=== PATIENT | female | born 1985 | race Caucasian/White ===

== ENCOUNTER 2017-12-07 22:34 | Emergency (ER) | payer SELFPAY ==
[2017-12-07] MEDS ORDERED: KETOROLAC 30 MG/ML INJ ONE (22:58)
[2017-12-07 23:06] LABS: Absolute Lymphocytes (CBC) 1.7 K/uL (0.7-4.9); Absolute Monocytes 0.7 K/uL (0.1-1.3); Absolute Neutrophil 12.1 K/uL (1.8-8.0); Basophils % 0.4 % (0-1.3); Eosinophils % 1.1 % (0-4.4); Hematocrit 40.2 % (36.0-45.0); Lymphocytes % 11.4 % (15.3-44.8); MCH 31.2 pg (27.0-35.0); MCV 88.3 fL (80-100); MPV 9.2 fL (7.6-11.3); Monocytes % 4.6 % (3.3-12.3); RBC Red Blood Cell Count 4.55 M/uL (3.86-4.86)
[2017-12-07 23:23] LABS: ALT/SGPT 28 U/L (12-78); AST/SGOT 25 U/L (15-37); Albumin 4.1 g/dL (3.4-5.0); Alkaline Phosphatase 60 U/L (45-117); BUN Blood Urea Nitrogen 16 mg/dL (7-18); Bicarbonate 27 mmol/L (21-32); Bilirubin Direct < 0.1 mg/dL (0-0.2); Bilirubin Total 0.5 mg/dL (0.2-1.0); Glucose Level 99 mg/dL (74-106); Lipase 170 U/L (73-393); Potassium 3.8 mmol/L (3.5-5.1); Protein, Total 7.9 g/dL (6.4-8.2); Sodium Level 138 mmol/L (136-145)
[2017-12-08 01:09] LABS: Urine Blood TRACE (NEG); Urine Glucose NEGATIVE (NEG); Urine Protein NEGATIVE (NEG); Urine Specific Gravity >1.030 (1.005-1.030)
[2017-12-08 01:33] LABS: Urine Bacteria 20-50 /HPF (<20); Urine Culture Reflex Order NOT NEEDED; Urine Mucus HEAVY /HPF (NONE SEEN); Urine RBC <5 /HPF (NONE SEEN)
--- NOTE | 2017-12-08 02:11 | ER ---
Nurse's Notes [facility] Name: Catarina Maldonado Age: 32 yrs Sex: Female : 1985 Arrival Date: 12/07/2017 Time: 22:35 Bed 23 Private MD: Diagnosis: Nausea and vomiting;Lower abdominal pain, unspecified Presentation: 12/07 22:43 Presenting complaint: Patient states: "PAIN STARTED EARLIER (1800H). I VOMITED THREE rv TIMES ALREADY.". Transition of care: patient was not received from another setting of care. Onset of symptoms was December 07, 2017 at 18:00. Risk Assessment: Do you want to hurt yourself or someone else? Patient reports no desire to harm self or others. Initial Sepsis Screen: Does the patient meet any 2 criteria? No. Patient's initial sepsis screen is negative. Does the patient have a suspected source of infection? No. Patient's initial sepsis screen is negative. Care prior to arrival: None. 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 - Social history:: Smoking status: Patient uses tobacco products, denies chronic smoking, but will smoke occasionally. - Ebola Screening: : Patient negative for fever greater than or equal to 101.5 degrees Fahrenheit, and additional compatible Ebola Virus Disease symptoms Patient denies exposure to infectious person Patient denies travel to an Ebola-affected area in the 21 days before illness onset. Screenin:48 Abuse screen: Denies threats or abuse. Denies injuries from another. Nutritional rv screening: No deficits noted. Tuberculosis screening: No symptoms or risk factors identified. Fall Risk None identified. Assessment: 22:47 General: Appears in no apparent distress. comfortable, Behavior is calm, cooperative. rv Pain: Complains of pain in ABDOMINAL, RLQ. Neuro: Level of Consciousness is awake, alert, obeys commands, Oriented to person, place, time, situation. Cardiovascular: Capillary refill < 3 seconds. Respiratory: Airway is patent. GI: Bowel sounds present X 4 quads. Abd is soft and non tender X 4 quads. Abd is non tender. : No signs and/or symptoms were reported regarding the genitourinary system. EENT: No signs and/or symptoms were reported regarding the EENT system. Derm: Skin is intact. 22:59 Reassessment: PATIENT DONE WITH ORAL CONTRAST. rv 23:54 Reassessment: Patient appears in no apparent distress at this time. Patient and/or rv family updated on plan of care and expected duration. Pain level reassessed. Patient is alert, oriented x 3, equal unlabored respirations, skin warm/dry/pink. 12/08 00:55 Reassessment: Patient appears in no apparent distress at this time. Patient and/or rv family updated on plan of care and expected duration. Pain level reassessed. Patient is alert, oriented x 3, equal unlabored respirations, skin warm/dry/pink. Vital Signs: 12/07 22:46 BP 137 / 95; Pulse 89; Pulse Ox 97% on R/A; Weight 90.72 kg; rv 23:53 BP 131 / 90; Pulse 82; Pulse Ox 97% on R/A; rv 12/08 00:54 BP 128 / 84; Pulse 74; Pulse Ox 96% on R/A; rv 01:33 BP 128 / 90; Pulse 94; Pulse Ox 100% on R/A; rv 02:08 BP 119 / 94; Pulse 98; Temp 98.4(O); Pulse Ox 98% ; rv ED Course: 12/07 22:35 Patient arrived in ED. ag3 22:41 Cordell Carroll PA is PHCP. cp 22:41 Ari Cagle MD is Attending Physician. cp 22:44 Triage completed. rv 22:48 Arm band placed on right wrist. rv 22:48 Patient has correct armband on for positive identification. Bed in low position. Call rv light in reach. Side rails up X 1. Pulse ox on. NIBP on. 23:00 Initial lab(s) drawn, by ED staff, sent to lab. Inserted saline lock: 20 gauge in left rv antecubital area, using aseptic technique. Blood collected. 23:37 US Pelvis Complete In Process Unspecified. EDMS 12/08 00:48 Urine Microscopic Only Sent. jb5 00:[address] via wheelchair. kw1 01:03 CT Abd/Pelvis - W/Contrast In Process Unspecified. EDMS 01:04 CT completed. Patient tolerated procedure well. Patient moved back from CT. kw1 02:28 No provider procedures requiring assistance completed. IV discontinued, bleeding rv controlled, No redness/swelling at site. Pressure dressing applied. Administered Medications: 12/07 23:19 Drug: TORadol 30 mg Route: IVP; Site: left antecubital; rv 12/08 02:27 Follow up: Response: No adverse reaction rv Outcome: 02:10 Discharge ordered by MD. cp 02:28 Discharged to home ambulatory. rv 02:28 Condition: good 02:28 Discharge instructions given to patient, Instructed on discharge instructions, follow up and referral plans. medication usage, Demonstrated understanding of instructions, follow-up care, medications, Prescriptions given X 2. 02:28 Patient left the ED. rv Signatures: Dispatcher [employer] EDMS Cordell Carroll PA PA cp Autumn Faye jb5 Grace Jaramillo kw1 Fantasma Lezama RN RN rv Celia Case ag3
--- NOTE | 2017-12-08 02:11 | EDPHYS ---
Physician Documentation [facility] Name: Catarina Maldonado Age: 32 yrs Sex: Female : 1985 Arrival Date: 12/07/2017 Time: 22:35 Bed 23 Private MD: ED Physician Ari Cagle HPI: 12/07 22:45 This 32 yrs old Female presents to ER via Ambulatory with complaints of cp Abdominal Pain. 22:45 The patient presents with abdominal pain right lower quadrant. Onset: The cp symptoms/episode began/occurred today, 4 hour(s) ago. The symptoms do not radiate. 22:45 Associated signs and symptoms: Pertinent positives: nausea, vomiting, Pertinent cp negatives: anorexia, blood in stools, chest pain, constipation, diarrhea, fever. 22:45 Severity of pain: in the emergency department the pain is unchanged despite home cp interventions. 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 - Social history:: Smoking status: Patient uses tobacco products, denies chronic smoking, but will smoke occasionally. - Ebola Screening: : Patient negative for fever greater than or equal to 101.5 degrees Fahrenheit, and additional compatible Ebola Virus Disease symptoms Patient denies exposure to infectious person Patient denies travel to an Ebola-affected area in the 21 days before illness onset. ROS: 23:00 Constitutional: Negative for body aches, chills, fever, poor PO intake. cp 23:00 Eyes: Negative for injury, pain, redness, and discharge. cp 23:00 ENT: Negative for drainage from ear(s), ear pain, sore throat, difficulty swallowing, difficulty handling secretions. 23:00 Cardiovascular: Negative for chest pain, edema, palpitations. 23:00 Respiratory: Negative for cough, shortness of breath, wheezing. 23:00 Abdomen/GI: Positive for abdominal pain, of the right lower quadrant, Negative for vomiting, diarrhea, constipation, anorexia. 23:00 : Negative for urinary symptoms, vaginal bleeding, vaginal discharge. 23:00 Skin: Negative for cellulitis, rash. 23:00 Neuro: Negative for altered mental status, headache, weakness. 23:00 All other systems are negative. Exam: 23:07 Head/Face: Normocephalic, atraumatic. cp 23:07 Constitutional: The patient appears in no acute distress, alert, awake, non-toxic, well developed, well nourished, uncomfortable. 23:07 Eyes: Periorbital structures: appear normal, Conjunctiva: normal, no exudate, no cp injection, Sclera: no appreciated abnormality, Lids and lashes: appear normal, bilaterally. 23:07 ENT: External ear(s): are unremarkable, Nose: is normal, Mouth: Lips: moist, Oral mucosa: pink and intact, moist, Posterior pharynx: is normal, airway is patent, no erythema, no exudate. 23:07 Neck: ROM/movement: is normal, is supple, without pain, no range of motions limitations, no nuchal rigidity. 23:07 Chest/axilla: Inspection: normal, Palpation: is normal, no crepitus, no tenderness. 23:07 Cardiovascular: Rate: normal, Rhythm: regular. 23:07 Respiratory: the patient does not display signs of respiratory distress, Respirations: normal, no use of accessory muscles, no retractions, no splinting, no tachypnea, labored breathing, is not present, Breath sounds: are clear throughout, no decreased breath sounds, no stridor, no wheezing. 23:07 Abdomen/GI: Inspection: abdomen appears normal, Bowel sounds: active, all quadrants, Palpation: soft, in all quadrants, moderate abdominal tenderness, in the right lower quadrant, rebound tenderness, is not appreciated, involuntary guarding, is not appreciated. 23:07 Back: pain, is absent, ROM is normal. 23:07 Skin: cellulitis, is not appreciated, no rash present. 23:07 Neuro: Orientation: to person, place \T\ time. Mentation: is normal, Cerebellar function: is grossly normal, Motor: moves all fours, strength is normal, Sensation: no obvious gross deficits. Vital Signs: 22:46 BP 137 / 95; Pulse 89; Pulse Ox 97% on R/A; Weight 90.72 kg; rv 23:53 BP 131 / 90; Pulse 82; Pulse Ox 97% on R/A; rv 12/08 00:54 BP 128 / 84; Pulse 74; Pulse Ox 96% on R/A; rv 01:33 BP 128 / 90; Pulse 94; Pulse Ox 100% on R/A; rv 02:08 BP 119 / 94; Pulse 98; Temp 98.4(O); Pulse Ox 98% ; rv MDM: 12/07 22:41 Patient medically screened. cp 23:00 Differential diagnosis: appendicitis, bowel obstruction, gastritis, non-specific abd cp pain, Ovarian Torsion, Peritonitis, Ureterolithiasis, urinary tract infection. 12/08 02:10 Data reviewed: vital signs, nurses notes, lab test result(s), radiologic studies, CT cp scan, ultrasound. 02:10 Counseling: I had a detailed discussion with the patient and/or guardian regarding: the cp historical points, exam findings, and any diagnostic results supporting the discharge/admit diagnosis, lab results, radiology results, to return to the emergency department if symptoms worsen or persist or if there are any questions or concerns that arise at home. Response to treatment: the patient's symptoms have markedly improved after treatment. Special discussion: Based on the patient's Hx, exam, and Dx evaluation, there is no indication for emergent surgery or inpatient Tx. It is understood by the patient/guardian that if the Sx's persist or worsen they need to return immediately for re-evaluation. ED course: VSS. CT and US negative for acute findings. Will discharge to home for continued monitoring. 12/07 22:47 Order name: Urine Microscopic Only; Complete Time: 01:56 cp 12/08 01:57 Interpretation: Normal except: UBACT 20-50; SQEPI 20-50. cp 12/07 22:47 Order name: Basic Metabolic Panel; Complete Time: 00:37 cp 12/08 00:37 Interpretation: Normal except: GFR 72. cp 12/07 22:47 Order name: CBC with Diff; Complete Time: 00:37 cp 12/08 00:37 Interpretation: Normal except: WBC 14.6; MOHIT% 82.5; LYM% 11.4; NEUT A 12.1. cp 12/07 22:47 Order name: Hepatic Function; Complete Time: 00:37 cp 12/07 22:47 Order name: Lipase; Complete Time: 00:37 cp 12/07 22:47 Order name: US Pelvis Complete cp 12/07 22:47 Order name: Urine Dipstick-Ancillary (obtain specimen); Complete Time: 00:48 cp 12/07 22:47 Order name: IV Saline Lock; Complete Time: 23:20 cp 12/07 22:47 Order name: Labs collected and sent; Complete Time: 23:20 cp 12/07 22:47 Order name: CT Abd/Pelvis - W/Contrast cp 12/08 00:54 Order name: Urine Dipstick--Ancillary (enter results); Complete Time: 01:56 ms 12/08 02:07 Interpretation: Normal except: UKET 2+; UBLD TRACE. cp 12/08 00:54 Order name: Urine --Ancillary (enter results); Complete Time: 01:56 ms 12/08 01:57 Interpretation: Normal except: USPGR >1.030. cp Administered Medications: 12/07 23:19 Drug: TORadol 30 mg Route: IVP; Site: left antecubital; rv 12/08 02:27 Follow up: Response: No adverse reaction rv Disposition: 04:11 Co-signature as Attending Physician, Ari Cagle MD I agree with the assessment and kdr plan of care. Disposition: 12/08/17 02:10 Discharged to Home. Impression: Nausea and vomiting, Lower abdominal pain, unspecified. - Condition is Stable. - Discharge Instructions: Abdominal Pain, Adult, Nausea and Vomiting, Adult. - Prescriptions for Zofran 4 mg Oral Tablet - take 1 tablet by ORAL route every 12 hours As needed; 20 tablet. Anaprox DS 550 mg Oral Tablet - take 1 tablet by ORAL route every 12 hours As needed; 20 tablet. - Medication Reconciliation Form, Thank You Letter, Antibiotic Education, Prescription Opioid Use form. - Follow up: Private Physician; When: 2 - 3 days; Reason: Recheck today's complaints. - Problem is new. - Symptoms have improved. Signatures: Dispatcher [employer] [facility] Ari Cagle MD MD kdr Cordell Carroll PA PA cp Fantasma Lezama RN RN rv Corrections: (The following items were deleted from the chart) 12/07 23:02 22:48 Creatinine for Radiology+C.LAB.BRZ ordered. EDTN EDTN 12/08 02:28 02:10 12/08/2017 02:10 Discharged to Home. Impression: Nausea and vomiting; Lower rv abdominal pain, unspecified. Condition is Stable. Forms are Medication Reconciliation Form, Thank You Letter, Antibiotic Education, Prescription Opioid Use. Follow up: Private Physician; When: 2 - 3 days; Reason: Recheck today's complaints. Problem is new. Symptoms have improved. cp
--- NOTE | 2017-12-08 08:38 | RAD REPORT ---
EXAM DESCRIPTION: US - Pelvis Complete - 12/07/2017 11:37 pm CLINICAL HISTORY: Right lower quadrant pain, pelvic pain Preliminary findings provided the time of the study. COMPARISON: None. TECHNIQUE: Transabdominal pelvic sonography was performed. FINDINGS: Transabdominal pelvic sonography performed. The patient is status post hysterectomy. Both ovaries are identifiable and normal in size. Doppler evaluation shows normal blood flow within t he ovarian stroma. No dominant solid or cystic ovarian or adnexal finding. No free fluid seen. IMPRESSION: Unremarkable post hysterectomy pelvic ultrasound.
--- NOTE | 2017-12-08 10:14 | RAD REPORT ---
EXAM DESCRIPTION: CT - Abdomen Pelvis W Contrast - 12/08/2017 6:39 am CLINICAL HISTORY: Right lower quadrant pain, prior hysterectomy A preliminary report was provided at the time of the study and reviewed prior to final report. COMPARISON: None. TECHNIQUE: Biphasic, helical CT imaging of the abdomen and pelvis was performed following 100 ml non -ionic IV contrast. Oral contrast was given. All CT scans are performed using dose optimization technique as appropriate and may include automated exposure control or mA/KV adjustment according to patient size. FINDINGS: No suspicious findings in the lung bases. No focal abnormality in a normal size liver. Attenuation is borderline to mildly fatty infiltrated. N o splenomegaly or focal splenic finding. Accessory splenic nodule present inferior margin. No acute p ancreatic process. Gallbladder and biliary tree are also without suspicious finding. Symmetric renal function is seen with no hydronephrosis or suspicious renal mass. No pyelonephritis o r acute renal parenchymal process. No adrenal gland abnormality. Urinary bladder is contracted. No gastric dilatation or gastric wall thickening. No dilated large or small bowel. There are on opaci fied small bowel loops in the lower abdomen. Appendix is not clearly defined. No free air or pneumat osis. No bulky lymphadenopathy or omental thickening. Very minimal umbilical hernia present. Uterus is absent by history. Status of the ovaries is uncertain. Left ovary is not clearly defined. M oderate amount of fluid is present in the cul-de-sac and bilateral adnexa with attenuation value grea ter than 30. There is additional soft tissue attenuation present that could represent hemorrhagic mat erial. In the upper right pelvis a 6 x 4 mm area of soft tissue attenuation is present. This could be a confluence of on opacified small bowel, Right ovary and/or hematoma. Additional free fluid is seen along each pericolic gutter superiorly to the liver and spleen level. No suspicious bony findings. IMPRESSION: Moderate amount of fluid in the pelvis and pericolic gutters as well as heterogeneous so ft tissue attenuation in the pelvis suspected to be hemorrhagic material. Uterus is surgically absent remotely and normal clearly defined ovaries are not seen. A hemorrhagic right ovarian cyst would be an etiology that could explain all of these findings. Hemor rhage of an ovarian mass would be a consideration. Ruptured appendicitis cannot be excluded in the ab sence of a normal appendix. However, this etiology is felt to be lower in likelihood.
== END 2017-12-08 02:28 | disposition home or self-care (01) ==
LOC: ER 22:34
DX: R10.31 Right lower quadrant pain (principal); Z72.0 Tobacco use
CPT/HCPCS: 36415; 74177; 76856; 80048; 80076; 81003; 81015; 81025; 83690; 85025; 96374; 99284; Q9967

== ENCOUNTER 2017-12-08 10:11 | Emergency (ER) | payer SELFPAY ==
[2017-12-08 14:02] LABS: Absolute Lymphocytes (CBC) 1.8 K/uL (0.7-4.9); Absolute Monocytes 0.7 K/uL (0.1-1.3); Absolute Neutrophil 9.1 K/uL (1.8-8.0); Basophils % 0.4 % (0-1.3); Eosinophils % 0.4 % (0-4.4); Hematocrit 36.1 % (36.0-45.0); Lymphocytes % 15.1 % (15.3-44.8); MCH 30.1 pg (27.0-35.0); MCV 88.6 fL (80-100); MPV 9.1 fL (7.6-11.3); RBC Red Blood Cell Count 4.07 M/uL (3.86-4.86)
--- NOTE | 2017-12-08 14:25 | RAD REPORT ---
EXAM DESCRIPTION: Teodoro Single View12/08/2017 1:22 pm CLINICAL HISTORY: Chest pain COMPARISON: none FINDINGS: The lungs appear clear of acute infiltrate. The heart is normal size IMPRESSION: No acute abnormalities displayed
[2017-12-08 15:15] LABS: Protime INR 1.04
[2017-12-08 15:29] LABS: ALT/SGPT 28 U/L (12-78); AST/SGOT 15 U/L (15-37); Albumin 4.6 g/dL (3.4-5.0); Alkaline Phosphatase 61 U/L (45-117); BUN Blood Urea Nitrogen 20 mg/dL (7-18); Bicarbonate 28 mmol/L (21-32); Bilirubin Direct 0.2 mg/dL (0-0.2); Bilirubin Total 0.8 mg/dL (0.2-1.0); Glucose Level 87 mg/dL (74-106); Magnesium 2.4 mg/dL (1.8-2.4); NT PRO-BNP 19 pg/mL (<125); Potassium 3.6 mmol/L (3.5-5.1); Protein, Total 8.3 g/dL (6.4-8.2); Sodium Level 139 mmol/L (136-145); Troponin (Emerg Dept Use Only) < 0.02 ng/mL (0.0-0.045)
--- NOTE | 2017-12-08 15:38 | ER ---
Nurse's Notes [facility] Name: Catarina Maldonado Age: 32 yrs Sex: Female : 1985 Arrival Date: 12/08/2017 Time: 10:13 Bed 23 Private MD: None, None Diagnosis: Chest pain, unspecified Presentation: 12/08 10:44 Presenting complaint: Patient states: Right sided chest pain that started last night aj after she was given a GI cocktail while patient was in this ER for upper abdominal pain. Reported pain to staff last night. Patient reports pain is worse when laying down and is reproduceable. Transition of care: patient was not received from another setting of care. Onset of symptoms was December 08, 2017. Risk Assessment: Do you want to hurt yourself or someone else? Patient reports no desire to harm self or others. Initial Sepsis Screen: Does the patient meet any 2 criteria? No. Patient's initial sepsis screen is negative. Does the patient have a suspected source of infection? No. Patient's initial sepsis screen is negative. Care prior to arrival: None. 10:44 Method Of Arrival: Ambulatory 10:44 Acuity: SANTY 4 aj Triage Assessment: 10:46 General: Appears in no apparent distress. comfortable, Behavior is calm, cooperative, aj appropriate for age. Pain: Complains of pain in anterior aspect of right upper chest. Neuro: Level of Consciousness is awake, alert, obeys commands, Oriented to person, place, time, situation, Appropriate for age. Cardiovascular: Reports chest pain, Denies diaphoresis, fatigue, lightheadedness, nausea, palpitations, shortness of breath, syncope, vomiting, Capillary refill < 3 seconds in bilateral fingers Patient's skin is warm and dry. Respiratory: Airway is patent Respiratory effort is even, unlabored, Respiratory pattern is regular, symmetrical. Derm: Skin is intact, is healthy with good turgor, Skin is pink, warm \T\ dry. normal. ICU TECH: 10:46 LMP N/A - Hysterectomy aj Historical: - Allergies: 10:46 No Known Allergies; aj - Home Meds: 10:46 None [Active]; aj - PMHx: 10:46 None; aj - PSHx: 10:46 Hysterectomy; aj - Immunization history:: Adult Immunizations up to date. - Social history:: Smoking status: Patient/guardian denies using tobacco. - Ebola Screening: : Patient negative for fever greater than or equal to 101.5 degrees Fahrenheit, and additional compatible Ebola Virus Disease symptoms Patient denies exposure to infectious person Patient denies travel to an Ebola-affected area in the 21 days before illness onset No symptoms or risks identified at this time. Screenin:51 Abuse screen: Denies threats or abuse. Nutritional screening: No deficits noted. tl3 Tuberculosis screening: No symptoms or risk factors identified. Fall Risk None identified. Assessment: 13:51 General: Appears in no apparent distress. comfortable, well groomed, well developed, tl3 well nourished, Behavior is calm, cooperative, appropriate for age. Pain: Complains of pain in anterior aspect of right upper chest Pain does not radiate. Pain began 1 day ago. Neuro: Level of Consciousness is awake, alert, obeys commands, Oriented to person, place, time, situation, Appropriate for age. Cardiovascular: Patient's skin is warm and dry. Respiratory: Airway is patent Respiratory effort is even, unlabored, Respiratory pattern is regular, symmetrical. GI: No signs and/or symptoms were reported involving the gastrointestinal system. : No signs and/or symptoms were reported regarding the genitourinary system. EENT: No signs and/or symptoms were reported regarding the EENT system. Derm: No signs and/or symptoms reported regarding the dermatologic system. 15:32 Reassessment: Patient appears in no apparent distress at this time. No changes from tl3 previously documented assessment. Patient and/or family updated on plan of care and expected duration. Pain level reassessed. Patient is alert, oriented x 3, equal unlabored respirations, skin warm/dry/pink. no needs at this time. Vital Signs: 10:46 BP 132 / 89; Pulse 88; Resp 17; Temp 99.0(O); Pulse Ox 100% on R/A; Weight 90.72 kg; aj Height 5 ft. 5 in. (165.10 cm); 13:51 BP 120 / 67; Pulse 84; Resp 18; Pulse Ox 98% on R/A; tl3 15:32 BP 113 / 75; Pulse 77; Resp 18; Pulse Ox 99% ; tl3 15:55 BP 117 / 75; Pulse 78; Resp 18; Pulse Ox 100% on R/A; Pain 0/10; mg2 10:46 Body Mass Index 33.28 (90.72 kg, 165.10 cm) aj ED Course: 10:13 Patient arrived in ED. mr 10:13 None, None is Private Physician. mr 10:23 EKG completed in triage. Results shown to MD. aj 10:27 EKG done, by ED staff, reviewed by Abhijit Ramos MD. 5 10:45 Triage completed. aj 10:46 Arm band placed on left wrist. Patient placed in waiting room, Patient notified of wait aj time. 12:20 Del Rod PA is PHCP. jr8 12:20 Abhijit Ramos MD is Attending Physician. jr8 13:20 X-ray completed. Portable x-ray completed in exam room. jr1 13:22 XRAY Chest (1 view) In Process Unspecified. EDMS 13:26 Angela Calderon, ZAHIDA is Primary Nurse. tl3 13:51 Patient has correct armband on for positive identification. Placed in gown. Bed in low tl3 position. Call light in reach. Side rails up X 1. 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 Pulse ox on. NIBP on. 13:51 No provider procedures requiring assistance completed. Missed attempt(s): 20 gauge in tl3 left forearm. antecubital area. Patient maintains SpO2 saturation greater than 95% on room air. 15:02 Lab(s) recollected, by me, sent to lab. Inserted saline lock: 20 gauge in right cb2 antecubital area, using aseptic technique. Blood collected. 15:55 IV discontinued, intact, bleeding controlled, No redness/swelling at site. Pressure mg2 dressing applied. Administered Medications: No medications were administered Outcome: 15:37 Discharge ordered by . jr8 15:56 Discharged to home ambulatory. mg2 15:56 Condition: stable 15:56 Discharge instructions given to patient, Instructed on discharge instructions, follow up and referral plans. Demonstrated understanding of instructions, follow-up care. 15:56 Patient left the ED. mg2 17:27 Condition: CALIXTO Oglesby spoke to patient about radiology results from last night, aa5 Dr. Odell reported to Del a possible ovarian cyst rupture, pt was instructed to follow-up with LOT ATTENDANT as soon as possible and instructed to return to ER if feeling SOB, increased abd pain or other worsening symptoms, pt verbalized understanding. Signatures: Dispatcher [employer] Althea Martinez, RN RN aj Juan, Ira mr Vancleve, Autumn jr1 Ivette Melendez, RN RN aa5 Del Rod PA PA jr8 Gaviota Davis Christian cb2 Lowrey, Tammy, ZAHIDA RN tl3 Nick Phoenix RN RN mg2
--- NOTE | 2017-12-08 15:38 | EDPHYS ---
Physician Documentation [facility] Name: Catarina Maldonado Age: 32 yrs Sex: Female : 1985 Arrival Date: 12/08/2017 Time: 10:13 Bed 23 Private MD: None, None ED Physician Abhijit Ramos HPI: 12/08 13:52 This 32 yrs old Female presents to ER via Ambulatory with complaints of Chest jr8 Pain. 13:52 The patient or guardian reports chest pain that is located primarily in the anterior jr8 chest wall, right. The pain radiates to the right shoulder, right back. Associated signs and symptoms: Pertinent positives: shortness of breath. The chest pain is described as dull, sharp. Duration: The patient or guardian reports multiple episodes. Modifying factors: The symptoms are alleviated by nothing. the symptoms are aggravated by laying down. Severity of pain: At its worst the pain was moderate in the emergency department the pain is unchanged. The patient has not experienced similar symptoms in the past. The patient has been recently seen by a physician: with different complaint(s). 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 - Social history:: Smoking status: Patient/guardian denies using tobacco. - Ebola Screening: : Patient negative for fever greater than or equal to 101.5 degrees Fahrenheit, and additional compatible Ebola Virus Disease symptoms Patient denies exposure to infectious person Patient denies travel to an Ebola-affected area in the 21 days before illness onset No symptoms or risks identified at this time. ROS: 13:52 Eyes: Negative for injury, pain, redness, and discharge, ENT: Negative for injury, jr8 pain, and discharge, Neck: Negative for injury, pain, and swelling, Respiratory: Negative for shortness of breath, cough, wheezing, and pleuritic chest pain, Abdomen/GI: Negative for abdominal pain, nausea, vomiting, diarrhea, and constipation, Back: Negative for injury and pain, MS/Extremity: Negative for injury and deformity, Skin: Negative for injury, rash, and discoloration, Neuro: Negative for headache, weakness, numbness, tingling, and seizure. 13:52 Cardiovascular: Positive for chest pain, Negative for edema, orthopnea, palpitations, paroxysmal nocturnal dyspnea. Exam: 13:52 Eyes: Pupils equal round and reactive to light, extra-ocular motions intact. Lids and jr8 lashes normal. Conjunctiva and sclera are non-icteric and not injected. Cornea within normal limits. Periorbital areas with no swelling, redness, or edema. ENT: Nares patent. No nasal discharge, no septal abnormalities noted. Tympanic membranes are normal and external auditory canals are clear. Oropharynx with no redness, swelling, or masses, exudates, or evidence of obstruction, uvula midline. Mucous membranes moist. Neck: Trachea midline, no thyromegaly or masses palpated, and no cervical lymphadenopathy. Supple, full range of motion without nuchal rigidity, or vertebral point tenderness. No Meningismus. Cardiovascular: Regular rate and rhythm with a normal S1 and S2. No gallops, murmurs, or rubs. Normal PMI, no JVD. No pulse deficits. Respiratory: Lungs have equal breath sounds bilaterally, clear to auscultation and percussion. No rales, rhonchi or wheezes noted. No increased work of breathing, no retractions or nasal flaring. Abdomen/GI: Soft, non-tender, with normal bowel sounds. No distension or tympany. No guarding or rebound. No evidence of tenderness throughout. Back: No spinal tenderness. No costovertebral tenderness. Full range of motion. Skin: Warm, dry with normal turgor. Normal color with no rashes, no lesions, and no evidence of cellulitis. MS/ Extremity: Pulses equal, no cyanosis. Neurovascular intact. Full, normal range of motion. Neuro: Awake and alert, GCS 15, oriented to person, place, time, and situation. Cranial nerves II-XII grossly intact. Motor strength 5/5 in all extremities. Sensory grossly intact. Cerebellar exam normal. Normal gait. 13:54 Chest/axilla: Inspection: normal, Palpation: tenderness, that is mild, of the jr8 anterior aspect of right upper chest, that partially reproduces the patient's complaints. Vital Signs: 10:46 BP 132 / 89; Pulse 88; Resp 17; Temp 99.0(O); Pulse Ox 100% on R/A; Weight 90.72 kg; aj Height 5 ft. 5 in. (165.10 cm); 13:51 BP 120 / 67; Pulse 84; Resp 18; Pulse Ox 98% on R/A; tl3 15:32 BP 113 / 75; Pulse 77; Resp 18; Pulse Ox 99% ; tl3 15:55 BP 117 / 75; Pulse 78; Resp 18; Pulse Ox 100% on R/A; Pain 0/10; mg2 10:46 Body Mass Index 33.28 (90.72 kg, 165.10 cm) aj MDM: 12:20 Patient medically screened. jr8 15:36 Data reviewed: vital signs, nurses notes, lab test result(s), EKG, radiologic studies, jr8 plain films, and as a result, I will discharge patient. Data interpreted: Pulse oximetry: on room air is 99 %. Interpretation: normal. Counseling: I had a detailed discussion with the patient and/or guardian regarding: the historical points, exam findings, and any diagnostic results supporting the discharge/admit diagnosis, lab results, radiology results, the need for outpatient follow up, a family practitioner, to return to the emergency department if symptoms worsen or persist or if there are any questions or concerns that arise at home. 15:42 ED course: reevaluated patient. Patient feeling better. Was able to reproduce pain with jr8 palpation along the right shoulder blade in the muscles and on chest wall. Pain with ROM of arm. More likely to be musculoskeletal but still to f/u. Patient good with this and will follow up. 12/08 12:44 Order name: Basic Metabolic Panel; Complete Time: 15:36 jr8 12/08 12:44 Order name: CBC with Diff; Complete Time: 15:37 jr8 12/08 12:44 Order name: LFT's; Complete Time: 15:36 jr8 12/08 12:44 Order name: Magnesium; Complete Time: 15:36 jr8 12/08 12:44 Order name: NT PRO-BNP; Complete Time: 15:36 jr8 12/08 12:44 Order name: PT-INR; Complete Time: 15:25 jr8 12/08 10:28 Order name: EKG - Nurse/Tech; Complete Time: 10:28 [facility] 12/08 12:44 Order name: Troponin (emerg Dept Use Only); Complete Time: 15:36 jr8 12/08 12:44 Order name: XRAY Chest (1 view); Complete Time: 14:26 8 12/08 12:44 Order name: EKG; Complete Time: 12:45 8 12/08 12:44 Order name: Cardiac monitoring; Complete Time: 13:50 8 12/08 12:44 Order name: IV Saline Lock; Complete Time: 15:02 8 12/08 12:44 Order name: Labs collected and sent; Complete Time: 13:50 jr8 12/08 12:44 Order name: ESR; Complete Time: 15:37 8 12/08 12:44 Order name: O2 Per Protocol; Complete Time: 13:50 jr8 12/08 12:44 Order name: O2 Sat Monitoring; Complete Time: 14:03 Administered Medications: No medications were administered Disposition: 17:49 Co-signature as Attending Physician, Abhijit Ramos MD. Disposition: 12/08/17 15:37 Discharged to Home. Impression: Chest pain, unspecified. - Condition is Stable. - Discharge Instructions: Nonspecific Chest Pain. - Medication Reconciliation Form, Thank You Letter, Antibiotic Education, Prescription Opioid Use form. - Follow up: Private Physician; When: 2 - 3 days; Reason: Recheck today's complaints, Continuance of care, Re-evaluation by your physician. - Problem is new. - Symptoms have improved. Signatures: Dispatcher [employer] EDMS Althea Mendiola RN RN aj Roszak, Josh, PA PA [facility] [place] [facility] Abhijit Ramos MD MD Nick Phoenix RN RN mg2 Corrections: (The following items were deleted from the chart) 13:55 13:52 Eyes: Pupils equal round and reactive to light, extra-ocular motions intact. Lids jr8 and lashes normal. Conjunctiva and sclera are non-icteric and not injected. Cornea within normal limits. Periorbital areas with no swelling, redness, or edema. ENT: Nares patent. No nasal discharge, no septal abnormalities noted. Tympanic membranes are normal and external auditory canals are clear. Oropharynx with no redness, swelling, or masses, exudates, or evidence of obstruction, uvula midline. Mucous membranes moist. Neck: Trachea midline, no thyromegaly or masses palpated, and no cervical lymphadenopathy. Supple, full range of motion without nuchal rigidity, or vertebral point tenderness. No Meningismus. Cardiovascular: Regular rate and rhythm with a normal S1 and S2. No gallops, murmurs, or rubs. Normal PMI, no JVD. No pulse deficits. Respiratory: Lungs have equal breath sounds bilaterally, clear to auscultation and percussion. No rales, rhonchi or wheezes noted. No increased work of breathing, no retractions or nasal flaring. Abdomen/GI: Soft, non-tender, with normal bowel sounds. No distension or tympany. No guarding or rebound. No evidence of tenderness throughout. Back: No spinal tenderness. No costovertebral tenderness. Full range of motion. Skin: Warm, dry with normal turgor. Normal color with no rashes, no lesions, and no evidence of cellulitis. MS/ Extremity: Pulses equal, no cyanosis. Neurovascular intact. Full, normal range of motion. Neuro: Awake and alert, GCS 15, oriented to person, place, time, and situation. Cranial nerves II-XII grossly intact. Motor strength 5/5 in all extremities. Sensory grossly intact. Cerebellar exam normal. Normal gait. jr8 15:56 15:37 12/08/2017 15:37 Discharged to Home. Impression: Chest pain, unspecified. mg2 Condition is Stable. Forms are Medication Reconciliation Form, Thank You Letter, Antibiotic Education, Prescription Opioid Use. Follow up: Private Physician; When: 2 - 3 days; Reason: Recheck today's complaints, Continuance of care, Re-evaluation by your physician. Problem is new. Symptoms have improved. jr8
--- NOTE | 2017-12-09 19:17 | EKG ---
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
== END 2017-12-08 15:56 | disposition home or self-care (01) ==
LOC: ER 10:11
DX: R07.9 Chest pain, unspecified (principal)
CPT/HCPCS: 36415; 71045; 80048; 80076; 83735; 83880; 84484; 85025; 85610; 85652; 93005; 99285